=== PATIENT | female | born 1995 | race Caucasian/White ===

== ENCOUNTER 2016-09-06 22:05 | Emergency (ER) | payer OTHER ==
[~2016-09-06] VITALS: Ht 154.9 cm; Wt 69.5 kg
[2016-09-06 22:08] VITALS: Ht 154.9 cm; Wt 69.5 kg
[2016-09-06] MEDS ORDERED: ACETAMINOPHEN 500 MG TAB PO ONE (22:10)
[2016-09-06] MEDS ORDERED: ACETAMINOPHEN 500 MG TAB PO STA (22:11)
[2016-09-07] MEDS ORDERED: SODIUM CHLORIDE 0.9% 1000ML 1,000 ML IV STA (00:38)
[2016-09-07 01:07] LABS: HEMATOCRIT 36.6 % (37-47); MEAN CELL VOLUME 96.8 fL (80-100); MEAN CORPUSCULAR HEMOGLOBIN 34.4 pg (25-34); MEAN CORPUSCULAR HGB CONC 35.5 g/dl (32-36); MEAN PLATELET VOLUME 9.7 fL (7.4-10.4); PLATELET COUNT 215 K/uL (130-400); RED BLOOD COUNT 3.78 M/uL (4.2-5.4); WHITE BLOOD COUNT 10.53 K/uL (4.8-10.8)
[2016-09-07 01:22] LABS: BUN/CREATININE RATIO 12.3 (10-20); CALCIUM 9.2 mg/dl (8.5-10.1); CREATININE 0.81 mg/dl (0.60-1.20)
[2016-09-07 01:25] LABS: URINE APPEARANCE CLEAR (CLEAR); URINE BILIRUBIN NEG (NEG); URINE COLOR YELLOW; URINE EPITHELIAL CELL AUTO >30 /lpf (0-5); URINE NITRITE NEG (NEG); URINE PH 5.5 (4.5-7.5); UROBILINOGEN NEG (NEG); ZZUR CULT IF INDIC CLEAN CATCH YES
[2016-09-07 01:30] LABS: MANUAL MICROSCOPIC REQUIRED? NO; REVIEW REQ? NO
[2016-09-07 01:33] LABS: BASO % 0.2 %; BASO ABS # 0.02 K/uL (0-0.2); COMPLETE YES; EOS % 0.2 %; IG% 0.2 %; LYMPH % 14.2 %; LYMPH ABS # 1.49 K/uL (1.2-3.4); NEUT % 75.2 %
--- NOTE | 2016-09-07 03:27 | EMERGENCY ROOM VISIT NOTE ---
History First contact with patient: 00:25 Chief Complaint: SORETHROAT Stated Complaint: SORETHROAT,CAN'T SWALLOW,FEVER,NAUSEA,CONGESTION History of Present Illness The patient is a 20 year old female who presents to the Emergency Department by private vehicle for evaluation of her sore throat, pain with swallowing, nasal congestion, and fevers. She reports that she is had ongoing cough congestion, and sore throat for the last several weeks. Her symptoms of sore throat worsened today which prompted her visit this evening. She was seen at a walk- in clinic and diagnosed with a viral versus or infection. She reports that her strep was initially negative. She is uncertain of the culture. The patient is tried xtmo-rwh-qyfljjy medications for her symptoms. She rates her current discomfort as a 10/10. She denies any headaches, blurry vision, double vision, neck pain/stiffness, nausea, vomiting, or chance for . She reports no history of strep or mono. Review of Systems A complete 10-point Review of Systems was discussed with the patient, with pertinent positives and negatives listed in the History of Present Illness. All remaining Review of Systems questions can be considered negative unless otherwise specified. Social History Smoking Status: Never Smoker Smokeless Tobacco Use: No Alcohol Use: occasionally Drug Use: none Marital Status: single Housing Status: lives with roommate Occupation Status: [employer] student Current/Historical Medications Scheduled Methylprednisolone (Medrol Dosepak), 0 PO DAILY Allergies Coded Allergies: No Known Allergies (Unverified , 09/06/16) Physical Exam Vital Signs Date Time Temp Pulse Resp B/P Pulse Ox O2 Delivery O2 Flow Rate FiO2 09/07/16 03:39 36.8 98 18 117/60 97 09/07/16 00:59 36.8 93 18 114/64 97 Room Air 09/06/16 22:13 98 Room Air 09/06/16 22:08 39.3 80 18 130/81 98 Room Air Pain Rating (0-10): 10 Physical Exam VITAL SIGNS - Vital signs and nursing notes were reviewed. GENERAL - Well nourished, well developed 20-year-old female in no acute distress. Pt communicates well with provider and answers questions appropriately. SKIN - Without rash. HEAD - NC/AT with no obvious deformities. EYES - PERRL with EOMI bilaterally. Sclera without injection. Palpebral conjunctiva pink and moist. EARS - No deformities of external structures noted on gross examination bilaterally. No pain elicited with palpation of the tragus bilaterally. External auditory canals without discharge or otorrhea. Tympanic membranes pearly johnson without retraction or bulging. No fluid or purulent material visualized behind the TM. Handle of malleus, umbo, cone of light, pars tensa/ flaccid all easily visualized. NOSE - Midline and without cyanosis. Without purulent drainage noted. Nasal mucosa without mucus discharge. MOUTH/OROPHARYNX - Without perioral cyanosis. Buccal mucosa pink and moist and without leukoplakia. Tongue midline with no palate deviation. No tonsillar hypertrophy appreciated bilaterally. No kissing tonsils. No trismus. Mild erythema without exudates noted. Good dentition noted. No muffled voice. NECK - Neck with FROM. Supple to palpation. No lymphadenopathy noted. No nuchal rigidity. LUNGS - Chest wall symmetric without accessory muscle use, intercostals retractions, or central cyanosis. Normal vesicular breath sounds CTA B/L. No wheezes, rales, or rhonchi appreciated. CARDIAC - RRR with S1/S2. No murmur, rubs, or gallops appreciated. ABDOMEN - Abdominal contour flat without pulsations or visible masses. BS normoactive all four quadrants. No tenderness, palpable masses, hepatosplenomegaly, or ascites noted. Medical Decision & Procedures Laboratory Results 09/07/16 00:45 Red Blood Count 3.78, Mean Corpuscular Volume 96.8, Mean Corpuscular Hemoglobin 34.4, Mean Corpuscular Hemoglobin Concent 35.5, Mean Platelet Volume 9.7, Neutrophils (%) (Auto) 75.2, Lymphocytes (%) (Auto) 14.2, Monocytes (%) (Auto) 10.0, Eosinophils (%) (Auto) 0.2, Basophils (%) (Auto) 0.2, Neutrophils # (Auto ) 7.93, Lymphocytes # (Auto) 1.49, Monocytes # (Auto) 1.05, Eosinophils # (Auto ) 0.02, Basophils # (Auto) 0.02 09/07/16 00:45 Test 09/06/16 22:06 09/07/16 00:33 09/07/16 00:45 Lab Scanned Report Laboratory Report/Additional Influenza Type A Antigen Neg for Influ A (NEG) Influenza Type B Antigen Neg for Influ B (NEG) White Blood Count 10.53 K/uL (4.8-10.8) Red Blood Count 3.78 M/uL (4.2-5.4) Hemoglobin 13.0 g/dL (12.0-16.0) Hematocrit 36.6 % (37-47) Mean Corpuscular Volume 96.8 fL (80-100) Mean Corpuscular Hemoglobin 34.4 pg (25-34) Mean Corpuscular Hemoglobin Concent 35.5 g/dl (32-36) Platelet Count 215 K/uL (130-400) Mean Platelet Volume 9.7 fL (7.4-10.4) Neutrophils (%) (Auto) 75.2 % Lymphocytes (%) (Auto) 14.2 % Monocytes (%) (Auto) 10.0 % Eosinophils (%) (Auto) 0.2 % Basophils (%) (Auto) 0.2 % Neutrophils # (Auto) 7.93 K/uL (1.4-6.5) Lymphocytes # (Auto) 1.49 K/uL (1.2-3.4) Monocytes # (Auto) 1.05 K/uL (0.11-0.59) Eosinophils # (Auto) 0.02 K/uL (0-0.5) Basophils # (Auto) 0.02 K/uL (0-0.2) RDW Standard Deviation 43.9 fL (36.4-46.3) RDW Coefficient of Variation 12.4 % (11.5-14.5) Immature Granulocyte % (Auto) 0.2 % Immature Granulocyte # (Auto) 0.02 K/uL (0.00-0.02) Urine Color YELLOW Urine Appearance CLEAR (CLEAR) Urine pH 5.5 (4.5-7.5) Urine Specific [place] 1.020 (1.000-1.030) Urine Protein NEG (NEG) Urine Glucose (UA) NEG (NEG) Urine Ketones 1+ (NEG) Urine Occult Blood NEG (NEG) Urine Nitrite NEG (NEG) Urine Bilirubin NEG (NEG) Urine Urobilinogen NEG (NEG) Urine Leukocyte Esterase MODERATE (NEG) Urine WBC (Auto) 5-10 /hpf (0-5) Urine RBC (Auto) 5-10 /hpf (0-4) Urine Hyaline Casts (Auto) 1-5 /lpf (0-5) Urine Epithelial Cells (Auto) >30 /lpf (0-5) Urine Bacteria (Auto) 1+ (NEG) Urine Test NEG (NEG) Anion Gap 9.0 mmol/L (3-11) Est Creatinine Clear Calc Drug Dose 99.6 ml/min Estimated GFR () 122.0 Estimated GFR (Non- 105.3 BUN/Creatinine Ratio 12.3 (10-20) Calcium Level 9.2 mg/dl (8.5-10.1) Total Bilirubin 0.5 mg/dl (0.2-1) Aspartate Amino Transf (AST/SGOT) 15 U/L (15-37) Alanine Aminotransferase (ALT/SGPT) 21 U/L (12-78) Alkaline Phosphatase 76 U/L (45-117) Total Protein 8.0 gm/dl (6.4-8.2) Albumin 4.0 gm/dl (3.4-5.0) Globulin 4.0 gm/dl (2.5-4.0) Albumin/Globulin Ratio 1.0 (0.9-2) Monoscreen NEG (NEG) Date/Time Source Procedure Growth Status 09/07/16 00:33 Throat Group A Streptococcus Screen - Final SPECIMEN NEGATIVE FOR GROUP A BETA ST... Complete 09/07/16 00:33 Group A Streptococcus Screen (REYNALDO) - Final Beta Hemolytic Strep Group F Complete 09/07/16 00:45 Urine , Clean Catch Urine Culture - Final MORE THAN THREE TYPES OF ORGANISMS NM... Complete Medications Administered Medications (Trade) Dose Ordered Sig/Erwin Route Start Time Stop Time Status Last Admin Dose Admin Acetaminophen 1000 mg 1,000 mg NOW STAT PO 09/06/16 22:11 09/06/16 22:12 DC 09/06/16 22:11 1,000 MG Sodium Chloride (Nss 1000ml) 1,000 ml @ 999 mls/hr Q1H1M STAT IV 09/07/16 00:38 09/07/16 01:38 DC 09/07/16 00:59 999 MLS/HR ED Course Patient was seen and evaluated by myself. Labs were drawn, saline lock in place. Influenza and rapid strep were obtained. Patient was hydrated with a 1000 mL normal saline bolus. She was treated with 1 g of Tylenol orally. Laboratory results demonstrate no acute leukocytosis, worrisome anemia, or bandemia. The patient has no significant electrolyte abnormalities. Monospot is negative. Rapid strep was negative. The patient is now afebrile. She was educated on today's findings. She was educated on [id number] medications for ongoing symptomatic management. She was educated on worrisome symptoms for return visit to the emergency department. Patient discharged home afebrile and in good condition. Medical Decision Given the patient's presentation and exam findings, I did elect to perform the above-mentioned workup. She presents today with multiple complaints consistent with upper respiratory symptoms. She has no meningeal findings. Her exam is otherwise unremarkable. Her influenza as well as rapid strep are both negative. Monospot was negative. She has no leukocytosis. I do not feel a chest x-ray is necessary. She responded well to antipyretics and IV fluid. The patient is likely expansive viral upper respiratory infection with associated pharyngitis. At this point, I do not feel that antibiotics are necessary or appropriate. Culture is pending. The patient will follow up [facility] services from today's visit. She will return for any changing/ worsening symptoms. Patient discharged home afebrile and in good condition. In the evaluation and treatment of this patient, the following differential diagnoses were considered: Strep, mono, meningitis, encephalitis, peritonsillar abscess, retropharyngeal abscess, amongst others. Impression Primary Impression: Viral URI Additional Impressions: Fever Pharyngitis Departure Information Dispostion Home / Self-Care Condition GOOD Prescriptions Methylprednisolone (MEDROL DOSEPAK) 4 Mg Jerry 0 PO DAILY, #1 PKT Prov: Geo Ibarra, YOSSI 09/07/16 Referrals No Doctor, Assigned (PCP) Patient Instructions ED Pharyngitis Viral Report Pending, My [facility] Additional Instructions You were seen in the emergency department for your sore throat. The results of your rapid strep screen were found to be Negative. You will be contacted in 48- 72 hrs with the results of your pending strep culture. For pain and fever control, you can use the following wzdo-efm-hqzzodz medicines (if >12 yo): - Regular strength (325mg/tab) Tylenol (acetaminophen) 2 tabs every 4-6 hours as needed. Do not exceed 12 tablets in a 24 hour period. Avoid taking more than 4 grams (4000 mg) of Tylenol per day. This includes any other sources of acetaminophen you may take on a regular basis. - Regular strength (200 mg/tab) Advil (ibuprofen) 1-2 tabs every 4-6 hours as needed. Do not exceed a dose of 3200 mg per day. - For best results, alternate dosing of Tylenol and Advil. In addition to your prescribed medications, you can also use the following home remedies: - Warm salt-water gargles 3 times per day can soothe your throat and help to fight infection. - Warm tea with honey can soothe your throat. Return to the emergency department if your symptoms persist or worsen over the next 2-3 days despite treatment course outlined above. Return to the emergency department if you develop the following symptoms of: inability to swallow solids , liquids, or drool; excessive wheezing or inability to catch your breath; or intractable fever or pain. Follow up with your primary care provider in 2-3 days from today's emergency department visit. Problem Qualifiers Additional Impressions: Fever Fever type: unspecified Qualified Codes: R50.9 - Fever, unspecified Pharyngitis Pharyngitis/tonsillitis etiology: unspecified etiology Qualified Codes: J02.9 - Acute pharyngitis, unspecified
[2016-09-07] MEDS ORDERED: METH4PAK PO (03:34)
[2016-09-07 03:39] VITALS: BP 117/60; PULSE 98; TEMP 36.8; O2SAT 97
--- NOTE | 2016-09-09 13:58 | Pharmacy Progress Note ---
ED Pharmacist Culture FollowUp Date of Service: Sep 09, 2016. Beta hemolytic Group F Strep isolated in throat culture - may be normal amena. Called patient regarding throat culture. Patient notes significant improvement in symptoms, although they are not completely resolved, yet. Counseled that she can continue without antibiotics for now as she is improving but to call ED or see PCP if symptoms do not completely resolve or if she gets worse. Case discussed with Dr. Matson.
--- NOTE | 2016-09-10 11:54 | Pharmacy Progress Note ---
ED Pharmacist Culture FollowUp Date of Service: Sep 10, 2016. Elizabeth called back regarding throat culture with Group F beta Strep. She notes that her symptoms have worsened today and she notes "white discharge" in the back of her throat. Prescription for cephalexin 500 mg po BID x7 days called to [facility] at the patient's request. Case discussed with Dr. Matson, who is the prescribing provider.
== END 2016-09-07 03:40 | disposition home or self-care (01) ==
LOC: C.EDB 22:06 → C.EDA 09-07 03:40
DX: J02.9 Acute pharyngitis, unspecified (principal); R50.9 Fever, unspecified